=== PATIENT | male | born 1980 | race Two or more races ===

== ENCOUNTER 2017-06-07 10:18 | Emergency (ER) | payer OTHER ==
[~2017-06-07] VITALS: Ht 182.9 cm; Wt 179.6 kg
--- NOTE | 2017-06-07 10:20 | NUR ---
36 YO MALE BB SELF. PATIENT IS ALERT AND ORIENTED X 3, C/O CHEST PAIN, NON RADIATING X 4 DAYS. PATIENT AMBULATED TO ER BED, SKIN WARM AND DRY, RESP EVEN AND UNLABORED. WILL CONTINUE TO MONITOR, AWAITING ORDERS FROM PROVIDER
--- NOTE | 2017-06-07 10:29 | NUR ---
MD AWAN AT BED SIDE FOR EVAL
[2017-06-07] MEDS ORDERED: LIDOCAINE VISCOUS 2% UD 15 ML UDC ONE (10:35)
[2017-06-07] MEDS ORDERED: MAG HYDROX/AL HYDROX/SIMETH 30 ML UDC ONE (10:36)
[2017-06-07 10:55] LABS: BASOPHILS # (AUTO) 0.1 /CMM (0.0-0.2); BASOPHILS % (AUTO) 0.8 % (0.0-2.0); EOSINOPHILS % (AUTO) 6.1 % (0.0-6.0); HEMATOCRIT 40 % (39-51); HEMOGLOBIN 13.5 g/dL (13.5-17.5); LYMPHOCYTES # (AUTO) 1.5 /CMM (0.8-4.8); LYMPHOCYTES % (AUTO) 18.4 % (20.0-44.0); MEAN CORPUSCULAR HGB CONC 34 g/dl (31.0-36.0); MEAN CORPUSCULAR VOLUME 79 fL (80-96); MONOCYTES # (AUTO) 0.4 /CMM (0.1-1.30); MONOCYTES % (AUTO) 5.4 % (2.0-12.0); NEUTROPHILS # (AUTO) 5.5 /CMM (1.8-8.9); NEUTROPHILS % (AUTO) 69.3 % (43.0-81.0); PLATELET COUNT (AUTO) 231 /CMM (150-450); RED BLOOD CELL COUNT(AUTO) 5.02 MIL/uL (4.5-6.0)
[2017-06-07] MEDS ORDERED: MAG HYDROX/AL HYDROX/SIMETH 30 ML UDC PO ONE (11:00)
[2017-06-07] MEDS ORDERED: LIDOCAINE VISCOUS 2% UD 15 ML UDC MM ONE (11:00)
[2017-06-07 11:10] LABS: INR 0.93 (0.85-1.15)
[2017-06-07 11:24] LABS: CREATININE 0.9 mg/dL (0.6-1.3); POTASSIUM 4.3 mmol/L (3.5-5.1)
[2017-06-07] MEDS ORDERED: hydrALAZINE HCL IV 20 MG VIAL ONE (11:27)
[2017-06-07 11:30] LABS: ALBUMIN 3.6 g/dL (3.4-5.0); BILIRUBIN,TOTAL 0.4 mg/dL (0.2-1.0); TOTAL PROTEIN, SERUM 7.9 g/dL (6.4-8.2)
[2017-06-07] MEDS ORDERED: hydrALAZINE HCL IV 20 MG VIAL IV ONE (11:30)
[2017-06-07 12:18] VITALS: BP 178/120
--- NOTE | 2017-06-07 12:19 | NUR ---
Patient discharged to home in stable condition. Written and verbal after care instructions given. Patient verbalizes understanding of instruction.IV removed. Catheter intact and site benign. Pressure and 4x4 applied to site. No bleeding noted. PT ambulatory with a steady gait
== END 2017-06-07 12:18 | disposition home or self-care (01) ==
LOC: ER 10:27
DX: R07.89 Other chest pain (principal); I10 Essential (primary) hypertension; E66.9 Obesity, unspecified; K21.9 Gastro-esophageal reflux disease without esophagitis; Z88.8 Allergy status to other drugs, medicaments and biological substances
CPT/HCPCS: 36415; 71045-TC; 80053-TC; 84484-TC; 85025-TC; 85730-TC; A4606; J0360; Z7610

== ENCOUNTER 2017-06-20 18:27 | Inpatient (IN) | payer OTHER ==
[2017-06-20] VITALS: BP 166/99
[~2017-06-20] VITALS: Ht 185.4 cm; Wt 128.4 kg
[2017-06-20] MEDS ORDERED: ALBU8.5H8 IH (18:51)
[2017-06-20] MEDS ORDERED: IBUP-1955 PO (18:51)
[2017-06-20] MEDS ORDERED: HYDR25TA4 PO (18:51)
--- NOTE | 2017-06-20 19:04 | NUR ---
PT BIBRA C/O WEAKNESS AND HIGH BLOOD PRESSURE. PT AOX3 RR EVEN AND UNLABORED. NO SOB NOTED. NAD NOTED. NO NVD AT THIS TIME. PT GOWNED AND PLACED ON MONITOR WAITING FOR MD MA.
--- NOTE | 2017-06-20 19:12 | NUR ---
DR. TRACEY AT BEDSIDE FOR EVAL.
[2017-06-20] MEDS ORDERED: LABETALOL HCL IV 100MG VIAL ONE (19:15)
--- NOTE | 2017-06-20 19:16 | NUR ---
Margot gary in [facility] - 06/20/17 at [address] by [address] PT [address]
[2017-06-20 19:19] LABS: BASOPHILS # (AUTO) 0.1 /CMM (0.0-0.2); BASOPHILS % (AUTO) 0.7 % (0.0-2.0); EOSINOPHILS % (AUTO) 5.6 % (0.0-6.0); HEMATOCRIT 40 % (39-51); HEMOGLOBIN 13.8 g/dL (13.5-17.5); LYMPHOCYTES # (AUTO) 1.7 /CMM (0.8-4.8); LYMPHOCYTES % (AUTO) 18.1 % (20.0-44.0); MEAN CORPUSCULAR HGB CONC 34 g/dl (31.0-36.0); MEAN CORPUSCULAR VOLUME 80 fL (80-96); MONOCYTES # (AUTO) 0.6 /CMM (0.1-1.30); MONOCYTES % (AUTO) 6.9 % (2.0-12.0); NEUTROPHILS # (AUTO) 6.5 /CMM (1.8-8.9); NEUTROPHILS % (AUTO) 68.7 % (43.0-81.0); PLATELET COUNT (AUTO) 247 /CMM (150-450); RDW COEFFICIENT OF VARIATION 13.9 (11.5-15.0); RED BLOOD CELL COUNT(AUTO) 5.07 MIL/uL (4.5-6.0); WHITE BLOOD COUNT (AUTO) 9.4 K/uL (4.3-11.0)
--- NOTE | 2017-06-20 19:26 | NUR ---
PT TO CT.
--- NOTE | 2017-06-20 19:27 | NUR ---
, SAMANTA AT BEDSIDE
[2017-06-20 19:30] LABS: CALCIUM, SERUM 9.3 mg/dL (8.5-10.1); CARBON DIOXIDE 28 mmol/L (21-32); CHLORIDE 101 mmol/L (98-107); CREATININE 1.1 mg/dL (0.6-1.3); GLUCOSE 130 mg/dL (74-106); POTASSIUM 3.1 mmol/L (3.5-5.1); SODIUM SERUM 138 mmol/L (136-145); UREA NITROGEN, BLOOD 19 mg/dL (7-18)
[2017-06-20] MEDS ORDERED: LABETALOL HCL IV 100MG VIAL IV ONE (19:30)
[2017-06-20 19:33] LABS: INR 0.89 (0.85-1.15)
--- NOTE | 2017-06-20 19:37 | NUR ---
PT RETURNED FROM CT.
[2017-06-20 19:38] LABS: TROPONIN I < 0.017 ng/mL (0.00-0.056)
[2017-06-20] MEDS ORDERED: ONDANSETRON HCL/PF 4 MG/2 ML VIAL ONE (19:54)
--- NOTE | 2017-06-20 19:56 | NUR ---
VERBAL ORDERS PER DR. TRACEY TO GIVE IVP ZOFRAN 4MG FOR PT X1 EPISODE OF VOMITTING. Addendum: 06/20/17 at 1957 by ANIBAL PT MEDICATED.
[2017-06-20] MEDS ORDERED: ONDANSETRON HCL/PF 4 MG/2 ML VIAL IV ONE (20:30)
--- NOTE | 2017-06-20 20:39 | NUR ---
DR. TRACEY AT BEDSIDE SPEAKING TO PT REGARDING POC
--- NOTE | 2017-06-20 20:48 | NUR ---
DR. TRACEY INFORMED PT POTASSIUM 3.1, NO NEW ORDERS AT THIS TIME.
--- NOTE | 2017-06-20 21:01 | NUR ---
PT IS ASSIGNED TO [facility]#: [id number], PT IS DIAGNOSED WITH HYPERTENSION, AND ELLIE SHEA IS THE ACCEPTING HEEL SEAT LASTER
--- NOTE | 2017-06-20 21:21 | NUR ---
REPORT GIVEN TO DALILA SCHROEDER FOR [facility] 114-1
[2017-06-20 21:30] VITALS: BP 160/99
--- NOTE | 2017-06-20 21:30 | NUR ---
RN TEL ADMITTING NOTE RECEIVED 36 YR OLD MALE FROM ER, REPORT GIVEN BY KERVIN RN, AOX3, ON R/A ALY WELL ,DENIES ANY CHEST PAIN OR DISCOMFORT. C/C WEAKNESS, FEELING DIZZY, UPON ARRIVAL ER BP 181/123, TREATED WITH LABETALOL IV 20MGX1, ZOFRAN 4MG IV PUSH FOR N/V. ADMITTING DX: HYPERTENSION URGENCY. UPON ARRIVAL TO LEIDY BP 166/99 66. PRN HYDRALAZINE 10MG IV GIVENAS ORDER BY ADMITTING DENTAL LABORATORY TECHNOLOGY TEACHER ELLIE Potter ALL ADMITTING ORDERS ENTERED PER PROTOCOL, ASSESSMENT AND INTERVIEW COMPLETED, NO SKIN ISSUES NOTED, ALL NEEDS MET STAYED WITH PT FOR SOME TIME, ORIENTED TO SURROUNDING, C/W REACH, SAFETY INSTRUCTION GIVEN WITH PROPER UNDERSTANDING OF RISKS, D/T PT C/O OF VERTIGO AND WEAKNESS, BRAKES ON BED ACTIVATED WELL LOWEST POSITION OF BED. WILL CONT TO MONITOR.
--- NOTE | 2017-06-20 21:36 | NUR ---
PT TRANSFERRED PER ACLS PROTOCOL.
[2017-06-20] MEDS ORDERED: hydrALAZINE HCL IV 20 MG VIAL IV PRN (22:00)
[2017-06-20] MEDS ORDERED: Z GUARD REMEDY 2 OZ OINT TP PRN (22:00)
[2017-06-20] MEDS ORDERED: MAG HYDROX/AL HYDROX/SIMETH 30 ML UDC PO PRN (22:00)
[2017-06-20] MEDS ORDERED: MAGNESIUM HYDROXIDE 30 ML UDC PO PRN (22:00)
[2017-06-20] MEDS ORDERED: ALBUTEROL SULFATE 8 GM HFA.AER.AD IH PRN (22:00)
[2017-06-20] MEDS: IV D5/0.45 NACL 1,000 ML IV PRN (22:30)
[2017-06-21] VITALS (9 sets, daily range): BP systolic 132–163; BP diastolic 76–99
[2017-06-21] MEDS: ONDANSETRON HCL/PF 4 MG/2 ML VIAL IVP PRN ×2 (00:16→06:20)
[2017-06-21] MEDS ORDERED: PROCHLORPERAZINE EDISYLATE 10 MG/2 ML VIAL IM PRN (01:30)
[2017-06-21] MEDS ORDERED: METOCLOPRAMIDE HCL 10 MG/2 ML VIAL IV PRN (01:30)
[2017-06-21] MEDS ORDERED: POTASSIUM CL. PREMIX PERIPHER. 200 ML ONE (04:00)
[2017-06-21] MEDS: POTASSIUM CL. PREMIX PERIPHER. 50 ML IV SCH ×4 (04:02→07:28)
[2017-06-21] MEDS: ACETAMINOPHEN 325 MG TABLET PO PRN ×3 (04:15→17:01)
--- NOTE | 2017-06-21 05:32 | NUR ---
RN CLOSING NOTE 0330 OBTAINED ORDER TO REPLACE POTASSIUM CL 3.1 WITH 200ML TOTAL OF 4 BAGS TO BE REPLACED. PT STABLE, UPDATED ON GOING PLAN OF CARE, WILL ENDORSE TO AM NURSE TO MONITOR FOR C/O VERTIGO AND CRAMPS PARVIN COOPER AT THIS TIME.
[2017-06-21 07:47] LABS: BASOPHILS % (AUTO) 0.3 % (0.0-2.0); EOSINOPHILS % (AUTO) 0.3 % (0.0-6.0); HEMATOCRIT 40 % (39-51); HEMOGLOBIN 13.3 g/dL (13.5-17.5); LYMPHOCYTES # (AUTO) 0.9 /CMM (0.8-4.8); LYMPHOCYTES % (AUTO) 8.9 % (20.0-44.0); MEAN CORPUSCULAR HGB CONC 34 g/dl (31.0-36.0); MEAN CORPUSCULAR VOLUME 82 fL (80-96); MONOCYTES # (AUTO) 0.4 /CMM (0.1-1.30); NEUTROPHILS # (AUTO) 8.5 /CMM (1.8-8.9); NEUTROPHILS % (AUTO) 86.5 % (43.0-81.0); PLATELET COUNT (AUTO) 238 /CMM (150-450); RDW COEFFICIENT OF VARIATION 15.3 (11.5-15.0); RED BLOOD CELL COUNT(AUTO) 4.85 MIL/uL (4.5-6.0); WHITE BLOOD COUNT (AUTO) 9.8 K/uL (4.3-11.0)
[2017-06-21 08:08] LABS: CALCIUM, SERUM 8.9 mg/dL (8.5-10.1); CREATININE 0.8 mg/dL (0.6-1.3); MAGNESIUM 1.8 mg/dL (1.8-2.4); POTASSIUM 3.9 mmol/L (3.5-5.1)
[2017-06-21] MEDS: PANTOPRAZOLE 40 MG VIAL IV SCH (09:00)
[2017-06-21] MEDS: IV D5/0.45 NACL 1,000 ML IV PRN (10:27)
[2017-06-21] MEDS: LABETALOL HCL (100MG) 100 MG TABLET PO SCH ×2 (11:26→20:41)
[2017-06-21] MEDS: LISINOPRIL (10MG) 10 MG TABLET PO SCH (11:27)
[2017-06-21] MEDS ORDERED: ALBUTEROL FS 2.5 MG/0.5 ML VIAL.NEB NEB PRN (13:30)
[2017-06-21] MEDS ORDERED: MECLIZINE HCL 12.5 MG TABLET PO PRN (13:30)
[2017-06-21 18:20] LABS: BILIRUBIN,URINE NEGATIVE (NEGATIVE); BLOOD, URINE NEGATIVE Ery/uL (NEGATIVE); KETONES,URINE NEGATIVE (NEGATIVE); LEUKOCYTE ESTERASE ,URINE NEGATIVE (NEGATIVE); NITRITE, URINE NEGATIVE (NEGATIVE); PROTEIN,URINE NEGATIVE (NEGATIVE); UGLUCOSE NEGATIVE (NEGATIVE); UROBILINOGEN,URINE 0.2 EU/dL (0.2)
[2017-06-21 18:21] LABS: APPEARANCE,URINE CLEAR (CLEAR); COLOR,URINE YELLOW (YELLOW)
--- NOTE | 2017-06-21 19:25 | NUR ---
RN NOTE PT CO NAUSEA, UNRELIEVED BY ZOFRAN, PAIN IN LOW BACK AND LEG SPASMS IN THE MORNING, COMPAZINE ADMINISTERED, AND NAUSEA IMPROVED, PT CO HEADACHE X2, RELIEVED BY TYLENOL, BUT STILL CO DIZZINESS WHEN SITTING UP OR STANDING UP, SPOKE WITH PARVIN FAJARDO, AND LATER WAS ASSESSED BY HER. PT WAS ABLE TO TOLERATE PO INTAKE WELL. BP CONTROLLED, MEDS GIVEN PRESCRIBED, NEEDS MET. RESULT OF CAROTID US AND ECHO RELAYED TO PARVIN FAJARDO, SHE ORDERED MRI W CONTRAST, WILL ENDORSE TO HAND IRONER.
[2017-06-21] MEDS ORDERED: ATORVASTATIN 10 MG TABLET PO SCH (22:00)
--- NOTE | 2017-06-22 00:30 | NUR ---
RN NOTE PROVIDED REPORT TO JENS CONNER LEIDY
--- NOTE | 2017-06-22 00:30 | NUR ---
MS RN NOTES RECEIVED PATIENT FROM DALILA ROMEO
[2017-06-22] MEDS: ASPIRIN 81 MG TAB.CHEW PO SCH ×2 (01:00→09:12)
[2017-06-22 04:00] VITALS: BP 145/89
--- NOTE | 2017-06-22 06:48 | NUR ---
TEXTED DR. SALINAS FOR MRI APPROVAL.
[2017-06-22 06:56] LABS: BASOPHILS % (AUTO) 0.3 % (0.0-2.0); EOSINOPHILS % (AUTO) 2.7 % (0.0-6.0); HEMATOCRIT 40 % (39-51); HEMOGLOBIN 13.4 g/dL (13.5-17.5); LYMPHOCYTES # (AUTO) 1.5 /CMM (0.8-4.8); LYMPHOCYTES % (AUTO) 19.2 % (20.0-44.0); MEAN CORPUSCULAR HGB CONC 34 g/dl (31.0-36.0); MEAN CORPUSCULAR VOLUME 82 fL (80-96); MONOCYTES # (AUTO) 0.5 /CMM (0.1-1.30); MONOCYTES % (AUTO) 6.7 % (2.0-12.0); NEUTROPHILS # (AUTO) 5.4 /CMM (1.8-8.9); NEUTROPHILS % (AUTO) 71.1 % (43.0-81.0); PLATELET COUNT (AUTO) 222 /CMM (150-450); RDW COEFFICIENT OF VARIATION 15.6 (11.5-15.0); RED BLOOD CELL COUNT(AUTO) 4.88 MIL/uL (4.5-6.0); WHITE BLOOD COUNT (AUTO) 7.7 K/uL (4.3-11.0)
[2017-06-22 07:17] LABS: CALCIUM, SERUM 8.5 mg/dL (8.5-10.1); CREATININE 0.8 mg/dL (0.6-1.3); MAGNESIUM 2.1 mg/dL (1.8-2.4); PHOSPHORUS 3.8 mg/dL (2.5-4.9); POTASSIUM 4.1 mmol/L (3.5-5.1)
--- NOTE | 2017-06-22 07:30 | NUR ---
SUPERINTENDENT AUTOMOTIVE INITIAL NOTES RECEIVED PATIENT AWAKE IN BED AOX3, NO SIGNS OF DISTRESS, NO CO OF PAIN AT THIS TIME, NO CO OF DIZZINES, ON ROOM AIR, AMBULATORY, URINAL AT BEDSIDE, IV R FA 20G, SL CLEAN AND PATENT, NPO FOR MRI OF BRAIN CONSENT SIGNED AND IN CHART, BED IN LOW AND LOCKED POSITION, CALL LIGHT WITHIN REACH, WILL CONTINUE TO MONITOR.
[2017-06-22 08:00] VITALS: BP 128/86
[2017-06-22] MEDS: PANTOPRAZOLE 40 MG VIAL IV SCH (09:11)
[2017-06-22] MEDS: LABETALOL HCL (100MG) 100 MG TABLET PO SCH (09:11)
[2017-06-22 09:12] VITALS: BP 128/86
[2017-06-22] MEDS: LISINOPRIL (10MG) 10 MG TABLET PO SCH (09:12)
--- NOTE | 2017-06-22 09:15 | NUR ---
MEDICAL INSTRUCTOR NOTES PATIENT SEEN BY DR BEYER, MRI CANCELLED, PATIENT CAN EAT BREAKFAST AT THIS TIME.
[2017-06-22] MEDS ORDERED: LABE100T15 PO (11:40)
[2017-06-22] MEDS ORDERED: ASPI-1169 PO (11:40)
[2017-06-22] MEDS ORDERED: MECL12.582 PO (11:40)
[2017-06-22] MEDS ORDERED: LISI10TA59 PO (11:40)
--- NOTE | 2017-06-22 14:36 | NUR ---
GREEN END DEPARTMENT SUPERVISOR NOTES PATIENT DISCHARGE ORDERS GIVEN BY CLIENT SERVER DEVELOPER ANTONIO SHARMA, ALL EXITCARE DONE, NO SIGNS OF DISTRESS, ALL NEEDS MET, TEACHING DONE ABOUT NEW MEDICATIONS AND SIDE EFFECTS, PATIENT VERBALIZED UNDERSTANDING, ALL QUESTIONS ANSWERED, TEACHING DONE TO RETURN TO ER IF SYMPTOMS WORSEN, IV DC'D BELONGINGS LIST SIGNED, NO SKIN ISSUES, PATIENT PICK-UP PATIENT VIA CAR.M
== END 2017-06-22 14:30 | disposition home or self-care (01) | DRG 392 ==
LOC: ER 18:28 → TELE1 21:13 → MEDSG1 06-21 11:18
PROVIDERS: ADMIT Registered Nurse; ATTEND Registered Nurse
DX: A08.4 Viral intestinal infection, unspecified (principal); E66.01 Morbid (severe) obesity due to excess calories; E87.6 Hypokalemia; I10 Essential (primary) hypertension; I16.0 Hypertensive urgency; K21.9 Gastro-esophageal reflux disease without esophagitis; Z68.37 Body mass index [BMI] 37.0-37.9, adult; R42 Dizziness and giddiness; R73.9 Hyperglycemia, unspecified; E78.5 Hyperlipidemia, unspecified; E86.0 Dehydration; Z87.891 Personal history of nicotine dependence
CPT/HCPCS: 36415; 70450-TC; 71045-TC; 80048-TC; 80061-TC; 81000-TC; 83735-TC; 83880; 84100-TC; 84443-TC; 84484-TC; 85025-TC; 85730-TC; 87081-TC; 93307-TC; 93880-TC; A4606; C9113; J0360; J0780; J2405; J3480; J3490; J8597; Z7610

== ENCOUNTER 2018-07-23 08:14 | Emergency (ER) | payer SELFPAY ==
[~2018-07-23] VITALS: Ht 190.5 cm; Wt 175.5 kg
[~2018-07-23 08:14] MED LIST: ALBU8.5H8 IH; ASPI-1169 PO; IBUP-1955 PO; LABE100T15 PO; LISI10TA59 PO; MECL12.582 PO
--- NOTE | 2018-07-23 08:20 | NUR ---
CAME IN TO ER FOR MIDSTERNAL CHEST PAIN, BURNING AND SHARP) INTERMITTENT SINCE LAST NIGHT, RADIATING TO BACK, HX OF GERD, TO ER BED 9, HOOKED TO MONITOR, CHANGED TO GOWN, PROVIDED W WARM BLANKET, AWAITING MD MA.
--- NOTE | 2018-07-23 08:36 | NUR ---
DR REZA AT BEDSIDE
[2018-07-23] MEDS ORDERED: PANTOPRAZOLE 40 MG VIAL ONE (08:48)
[2018-07-23] MEDS ORDERED: ASPIRIN 81 MG TAB.CHEW ONE (08:48)
[2018-07-23 08:52] LABS: BASOPHILS # (AUTO) 0.1 /CMM (0.0-0.2); BASOPHILS % (AUTO) 1.2 % (0.0-2.0); HEMATOCRIT 39 % (39-51); HEMOGLOBIN 13.2 g/dL (13.5-17.5); LYMPHOCYTES # (AUTO) 1.1 /CMM (0.8-4.8); LYMPHOCYTES % (AUTO) 17.4 % (20.0-44.0); MEAN CORPUSCULAR HGB CONC 34 g/dl (31.0-36.0); MEAN CORPUSCULAR VOLUME 84 fL (80-96); MONOCYTES # (AUTO) 0.4 /CMM (0.1-1.30); MONOCYTES % (AUTO) 5.9 % (2.0-12.0); NEUTROPHILS # (AUTO) 4.5 /CMM (1.8-8.9); NEUTROPHILS % (AUTO) 70.5 % (43.0-81.0); PLATELET COUNT (AUTO) 209 /CMM (150-450); WHITE BLOOD COUNT (AUTO) 6.4 K/uL (4.3-11.0)
[2018-07-23 09:00] LABS: CALCIUM, SERUM 8.8 mg/dL (8.5-10.1); CARBON DIOXIDE 30 mmol/L (21-32); CHLORIDE 104 mmol/L (98-107); GLUCOSE 99 mg/dL (74-106); POTASSIUM 4.2 mmol/L (3.5-5.1); SODIUM SERUM 141 mmol/L (136-145); UREA NITROGEN, BLOOD 12 mg/dL (7-18)
[2018-07-23] MEDS ORDERED: ASPIRIN 81 MG TAB.CHEW PO ONE (09:00)
[2018-07-23] MEDS ORDERED: PANTOPRAZOLE 40 MG VIAL IV ONE (09:00)
[2018-07-23 09:06] LABS: ALANINE AMINOTRANSFERASE 42 U/L (12-78); ALBUMIN 3.4 g/dL (3.4-5.0); ALKALINE PHOSPHATASE 63 U/L (46-116); ASPARTATE AMINOTRANSFERASE 21 U/L (15-37); BILIRUBIN,DIRECT 0.1 mg/dL (0.0-0.2); BILIRUBIN,TOTAL 0.4 mg/dL (0.2-1.0); LIPASE 91 U/L (73-393); TOTAL PROTEIN, SERUM 7.2 g/dL (6.4-8.2)
[2018-07-23 09:37] VITALS: BP 130/78
--- NOTE | 2018-07-23 09:37 | NUR ---
IV removed. Catheter intact and site benign. Pressure and 4x4 applied to site. No bleeding noted.Patient discharged to home in stable condition. Written and verbal after care instructions given. Patient verbalizes understanding of instruction.
== END 2018-07-23 09:38 | disposition home or self-care (01) ==
LOC: ER 08:15
DX: R07.89 Other chest pain (principal); I10 Essential (primary) hypertension; K21.9 Gastro-esophageal reflux disease without esophagitis; Z91.09 Other allergy status, other than to drugs and biological substances; Z79.82 Long term (current) use of aspirin; Z79.899 Other long term (current) drug therapy
CPT/HCPCS: 36415; 71045; 80048; 80076; 83690; 84484; 85025; 93005; 96374; 99284; C9113